=== PATIENT | male | born 1955 | race Caucasian/White ===

== ENCOUNTER 2021-11-21 14:17 | Emergency (ER) | payer OTHER | END 2021-11-21 16:00 | disposition home or self-care (01) | LOC: JP.ED 14:17 | DX: S20.211A Contusion of right front wall of thorax, initial encounter (principal); E78.00 Pure hypercholesterolemia, unspecified; I10 Essential (primary) hypertension; Z79.899 Other long term (current) drug therapy; V19.9XXA Pedal cyclist (driver) (passenger) injured in unspecified traffic accident, initial encounter | CPT/HCPCS: 71045; 71045-26; 99282; 99284 ==